=== PATIENT | female | born 1985 | race Caucasian/White ===

== ENCOUNTER 2021-11-02 11:08 | Observation (INO) | payer MEDICAID, SELFPAY ==
[~2021-11-02] VITALS: Ht 162.6 cm; Wt 72.6 kg
[2021-11-02 11:46] VITALS: BP 101/57
== END 2021-11-02 14:45 | disposition home or self-care (01) ==
LOC: MLD 11:08
PROVIDERS: ADMIT Obstetrics & Gynecology; ATTEND Obstetrics & Gynecology
DX: O47.1 False labor at or after 37 completed weeks of gestation (principal); Z20.822 Contact with and (suspected) exposure to COVID-19; Z3A.37 37 weeks gestation of pregnancy
CPT/HCPCS: 59025; 76805; 81000; 87426; G0378; G0379; Q0092